=== PATIENT | male | born 1945 | race Caucasian/White ===

== ENCOUNTER 2017-10-11 09:35 | Emergency (ER) | payer MEDICARE, OTHER ==
[2017-10-11] MEDS ORDERED: Aspirin 81 MG Tab.Chew ONE (09:49)
[2017-10-11] MEDS ORDERED: Sodium Chloride 0.9% 10 ML Syringe FLUSH PRN (09:52)
[2017-10-11] MEDS ORDERED: Nitroglycerin 0.4 MG Tab.SL SL PRN (09:52)
[2017-10-11] MEDS ORDERED: Aspirin 81 MG Tab.Chew PO ONE (09:52)
--- NOTE | 2017-10-11 09:52 | EDM.PDOC ---
ED HPI GENERAL MEDICAL PROBLEM - General Chief Complaint: Chest Pain Stated Complaint: [id number] CHEST PAIN Time Seen by Provider: 10/11/17 09:45 Source of Information: Reports: Patient, Old Records, RN, RN Notes Reviewed History Limitations: Reports: No Limitations - History of Present Illness INITIAL COMMENTS - FREE TEXT/NARRATIVE: Arrives from home by POV with c/o substernal chest pain and shortness of breath that began at 0830HRS this morning while walking from the house to the street to check his mailbox. Pt took a Nitroglycerin 0.4mg SL x1 with not much result, so he took a second dose which resulted in partial relief of his chest pain. He felt well enough to get a shower and get ready for the day, but while waiting for the shower to be available the chest pain returned while he was at rest. He has taken all of his routine maint. medications today. He last took Aspirin 81mg last night. Pt reports that yesterday he felt completely well and normal, and felt well this morning until the onset of the chest pain. He denies cough, edema, palpitations, syncope, lightheadedness, headache, abdominal pain, fever, or chills. He admits that he did experience just a "brief wave" of nausea with the first episode of chest pain today, but denies any current nausea. Onset: Sudden Onset Date: 10/11/17 Duration: Intermittent, Recurring, Waxing/Waning Location: Reports: Chest Quality: Reports: Ache, Dull, Pressure Severity: Moderate Improves with: Reports: Medication (partial & brief improvement w/Nitro 0.4mg SL prior to arrival to ER.) Worsens with: Reports: None Associated Symptoms: Reports: No Other Symptoms Treatments APPLICATION LEAD: Reports: Nitroglycerin Left Chest Pain Score (Numeric/FACES): 6 - Related Data Allergies Allergy/AdvReac Type Severity Reaction Status Date / Time cisapride Allergy Cannot Verified 12/18/14 08:58 Remember cisapride monohydrate Allergy Cannot Verified 12/18/14 09:20 [From Propulsid] Remember diclofenac sodium Allergy Cannot Verified 12/18/14 08:58 [From Arthrotec] Remember misoprostol [From Arthrotec] Allergy Cannot Verified 12/18/14 08:58 Remember nadolol Allergy Cannot Verified 12/18/14 08:58 Remember Home Meds: Home Meds Aspirin [Halfprin] 1 tab PO BEDTIME 12/18/14 [History] Losartan [Cozaar] 25 mg PO DAILY 12/18/14 [History] Metoprolol Succinate [Toprol Xl] 1 tab PO DAILY 12/18/14 [History] Nitroglycerin [Nitrostat] 1 tab PO ASDIRECTED PRN 12/18/14 [History] Omeprazole [Prilosec] 1 tab PO DAILY 12/18/14 [History] Ticagrelor [Brilinta] 90 mg PO BID 07/15/16 [History] amLODIPine [Norvasc] 1 tab PO DAILY 10/11/17 [History] atorvaSTATin [Lipitor] 1 tab PO DAILY 10/11/17 [History] Past Medical History Cardiovascular History: Reports: Afib, Angina, Arrhythmia, CAD, High Cholesterol , Hypertension, [place], PTCA Gastrointestinal History: Reports: GERD Genitourinary History: Reports: BPH - Past Surgical History Cardiovascular Surgical History: Reports: Coronary Artery Bypass, Coronary Artery Stent Musculoskeletal Surgical History: Reports: Joint Replacement Social & Family History - Tobacco Use Smoking Status *Q: Never Smoker Years of Tobacco use: 25 Second Hand Smoke Exposure: No - Alcohol Use Days Per Week of Alcohol Use: 7 Number of Drinks Per Day: 3 Total Drinks Per Week: 21 - Recreational Drug Use Recreational Drug Use: No - Living Situation & Occupation Living situation: Reports: , with Spouse Occupation: Retired ED ROS GENERAL - Review of Systems Review Of Systems: ROS reveals no pertinent complaints other than HPI. ED EXAM, GENERAL - Physical Exam Exam: See Below Exam Limited By: No Limitations General Appearance: Alert, WD/WN, No Apparent Distress, Anxious Eye Exam: Bilateral Eye: Normal Inspection Ears: Normal External Exam, Hearing Grossly Normal Nose: Normal Inspection Throat/Mouth: Normal Inspection, Normal Lips, Normal Teeth, Normal Gums, Normal Oropharynx, Normal Voice, No Airway Compromise Head: Atraumatic, Normocephalic Neck: Normal Inspection, Supple, Non-Tender, Full Range of Motion Respiratory/Chest: No Respiratory Distress, Lungs Clear, Normal Breath Sounds, No Accessory Muscle Use, Chest Non-Tender Cardiovascular: Normal Peripheral Pulses, Regular Rate, Rhythm, No Edema, No Gallop, No JVD, No Murmur, No Rub GI/Abdominal: Normal Bowel Sounds, Soft, Non-Tender, No Distention, No Abnormal Bruit (Male) Exam: Deferred Rectal (Males) Exam: Deferred Back Exam: Normal Inspection. No: CVA Tenderness (L), CVA Tenderness (R) Extremities: Normal Inspection, Normal Range of Motion, Non-Tender, Normal Capillary Refill, No Pedal Edema Neurological: Alert, Oriented, CN II-XII Intact, Normal Cognition, Normal Gait, No Motor/Sensory Deficits Psychiatric: Anxious Skin Exam: Warm, Dry, Intact, Normal Color, No Rash EKG INTERPRETATION EKG Date: 10/11/17 Time: 09:39 Rhythm: Other (SR) Rate (Beats/Min): 67 [place]: LAD-Left [place] Deviation P-Wave: Present QRS: Other (borderline IVCD, PVC) ST-T: Normal QT: Normal Comparison: NA - No Prior EKG Course - Vital Signs Last Recorded V/S: Last Vital Signs Temp 36.1 C 10/11/17 09:37 Pulse 73 10/11/17 09:37 Resp 16 10/11/17 09:37 BP 108/52 L 10/11/17 09:56 Pulse Ox 94 L 10/11/17 09:37 - Orders/Labs/Meds Orders: Active Orders 24 hr Category Date Time Status EKG 12 Lead [EKG Documentation Completion] [RC] STAT Care 10/11/17 09:52 Active Peripheral IV Care [RC] . DIRECTED Care 10/11/17 09:53 Active Nitroglycerin [Nitrostat] Med 10/11/17 09:52 Active 0.4 mg SL Q5M PRN Sodium Chloride 0.9% [Saline Flush] Med 10/11/17 09:52 Active 10 ml FLUSH ASDIRECTED PRN Peripheral IV Insertion Adult [OM.PC] Stat Oth 10/11/17 09:52 Ordered Medication Orders Nitroglycerin (Nitrostat) 0.4 mg SL Q5M PRN PRN Reason: Chest Pain Last Admin: 10/11/17 09:56 Dose: 0.4 mg Sodium Chloride (Saline Flush) 10 ml FLUSH ASDIRECTED PRN PRN Reason: Keep Vein Open Last Admin: 10/11/17 09:36 Dose: 10 ml Labs: Laboratory Tests 10/11/17 10/11/17 10/11/17 Range/Units 09:47 09:47 09:47 WBC 6.8 (5.0-10.0) 10^3/uL RBC 4.48 L (4.6-6.2) 10^6/uL Hgb 13.8 L (14.0-18.0) g/dL Hct 40.1 (40.0-54.0) % MCV 89.5 (80-100) fL MCH 30.8 (27.0-34.0) pg MCHC 34.4 (33.0-35.0) g/dL Plt Count 187 (150-450) 10^3/uL Neut % (Auto) 64.1 (42.2-75.2) % Lymph % (Auto) 21.9 (20.5-50.1) % [place] % (Auto) 12.4 H (2-8) % Eos % (Auto) 1.0 (1.0-3.0) % Baso % (Auto) 0.6 (0.0-1.0) % PT 10.3 (9.0-12.0) SEC INR 1.0 (0.9-1.2) APTT 24.4 (22.0-34.0) SEC D-Dimer, Quantitative 362 (0-400) ng/mL Sodium 135 (135-145) mmol/L Potassium 3.7 (3.6-5.0) mmol/L Chloride 104 (101-111) mmol/L Carbon Dioxide 20.0 L (21.0-31.0) mmol/L Anion Gap 14.7 BUN 24 H (7-18) mg/dL Creatinine 1.3 (0.6-1.3) mg/dL Est Cr Clr Drug Dosing TNP Estimated GFR (MDRD) 54 BUN/Creatinine Ratio 18.46 Glucose 120 H (74-105) mg/dL Calcium 9.1 (8.4-10.2) mg/dl Total Bilirubin 0.9 (0.2-1.0) mg/dL AST 31 (10-42) IU/L ALT 27 (10-60) IU/L Alkaline Phosphatase 80 (42-121) IU/L Troponin I < 0.02 (0.00-0.02) ng/ml B-Natriuretic Peptide 72 (0-100) pg/ml Total Protein 6.9 (6.7-8.2) g/dl Albumin 3.9 (3.2-5.5) g/dl Globulin 3.0 Albumin/Globulin Ratio 1.30 Amylase 60 (28-100) U/L Lipase 20 L (22-51) U/L Meds: Medications Generic Name Dose Route Start Last Admin Trade Name Freq PRN Reason Stop Dose Admin Nitroglycerin 0.4 mg 10/11/17 09:52 10/11/17 09:56 Nitrostat SL 0.4 mg Q5M PRN Administration Chest Pain Sodium Chloride 10 ml 10/11/17 09:52 10/11/17 09:36 Saline Flush FLUSH 10 ml ASDIRECTED PRN Administration Keep Vein Open Discontinued Medications Generic Name Dose Route Start Last Admin Trade Name Freq PRN Reason Stop Dose Admin Aspirin 324 mg 10/11/17 09:52 10/11/17 09:50 Aspirin PO 10/11/17 09:53 324 mg ONETIME ONE Administration Aspirin Confirm 10/11/17 09:49 10/11/17 09:50 Aspirin Administered 10/11/17 09:50 324 mg Dose Administration 324 mg .ROUTE .STK-MED ONE Morphine Sulfate 4 mg 10/11/17 10:06 10/11/17 10:10 Morphine IVPUSH 10/11/17 10:07 4 mg ONETIME ONE Administration - Radiology Interpretation Free Text/Narrative:: CXR: no acute process, see Rad. report. - Re-Assessments/Exams Free Text/Narrative Re-Assessment/Exam: 10/11/17 11:30 Pt with known CAD s/p CABG and multiple stents with chest pain at rest, partially relieved with Nitroglycerin and Morphine, but recurrent at rest. Pt refuses to receive care at [facility] in [place] (the nearest facility with cardiology services), and requests transfer only to [facility] where he established with he life skills worker. I explained the requirement to transfer him to the nearest facility, but he still refuses and he acknowledges that ground transfer to [place] may affect the reimbursement of his care and/or transfer. Pt accepts any potential financial implications of being transferred to [facility], and of any potential complications to his medical condition by choosing a longer transfer time of travel. Departure - Departure Time of Disposition: 11:37 Disposition: DC/Tfer to Acute Hospital 02 Reason for Transfer *Q: Primary PCI Indicated Condition: Serious, Undetermined Clinical Impression: Acute coronary syndrome Chest pain Qualifiers: Chest pain type: chest pain due to myocardial ischemia Ischemic chest pain type : unspecified angina pectoris type Qualified Code(s): I20.9 - Angina pectoris, unspecified Forms: ED Department Discharge, Interfacility Transfer EMTGLADIS - My Orders Last 24 Hours: My Active Orders 10/11/17 09:52 EKG 12 Lead [EKG Documentation Completion] [RC] STAT Nitroglycerin [Nitrostat] 0.4 mg SL Q5M PRN Sodium Chloride 0.9% [Saline Flush] 10 ml FLUSH ASDIRECTED PRN Peripheral IV Insertion Adult [OM.PC] Stat 10/11/17 09:53 Peripheral IV Care [RC] . DIRECTED - Assessment/Plan Last 24 Hours: My Active Orders 10/11/17 09:52 EKG 12 Lead [EKG Documentation Completion] [RC] STAT Nitroglycerin [Nitrostat] 0.4 mg SL Q5M PRN Sodium Chloride 0.9% [Saline Flush] 10 ml FLUSH ASDIRECTED PRN Peripheral IV Insertion Adult [OM.PC] Stat 10/11/17 09:53 Peripheral IV Care [RC] . DIRECTED
[2017-10-11] MEDS ORDERED: Morphine 4 MG/ML Syringe IVPUSH ONE (10:06)
[2017-10-11 10:17] LABS: CHLORIDE,CL 104 mmol/L (101-111); SODIUM,NA 135 mmol/L (135-145)
[2017-10-11 11:26] VITALS: BP 143/86
--- NOTE | 2017-10-19 18:37 | EKG ---
10/11/2017 - MINDA VALENTINE - FINDINGS: This 12-lead EKG shows normal sinus rhythm with a ventricular rate of 67. Normal axis and intervals. Occasional PVC. Borderline intraventricular conduction defect with left axis deviation. [facility] /[id number]
== END 2017-10-11 12:16 ==
LOC: DL.ED 09:35
DX: I24.9 Acute ischemic heart disease, unspecified (principal); E78.00 Pure hypercholesterolemia, unspecified; I10 Essential (primary) hypertension; Z88.8 Allergy status to other drugs, medicaments and biological substances; Z79.82 Long term (current) use of aspirin; Z79.899 Other long term (current) drug therapy; Z95.5 Presence of coronary angioplasty implant and graft
CPT/HCPCS: 36415; 71010; 80053; 82150; 83690; 83880; 84484; 85025; 85379; 85610; 85730; 93005; 93010; 96374; 99285; A9270; J2270; J7050

== ENCOUNTER 2019-07-14 10:55 | Emergency (ER) | payer MEDICARE, OTHER ==
--- NOTE | 2019-07-14 11:20 | EDM.PDOC ---
ED HPI GENERAL MEDICAL PROBLEM - General Chief Complaint: Cardiovascular Problem Stated Complaint: DIZZY Time Seen by Provider: 07/14/19 11:10 Source of Information: Reports: Patient, Family, RN, RN Notes Reviewed History Limitations: Reports: No Limitations - History of Present Illness INITIAL COMMENTS - FREE TEXT/NARRATIVE: Pt to ER with with c/o dizziness and blurred vision. States he also had some pain across the upper back and neck at that time. States he had gotten up at a restaurant to pay and the symptoms began. Patient states no recent illness. States about 1 week ago he had diarrhea 3-4 times in a day. States he has extensive heart history, CABG and stents, has had VT in the past. Was seen by his bagger meat and started on new antianginal medication last week as well as a form of Proscar. Pt states he did take a Nitroglycerin when he was having the symptoms. States he does have some chronic kidney disease that he is followed by Dr. Tapia for. Upon arrival to the ER pt states the dizziness and pain are gone. When doing orthostatic BP's, pt hypotensive, dizzy and blurred vision with sitting up and standing. Onset: Today, Sudden Location: Reports: Neck - Related Data Allergies Allergy/AdvReac Type Severity Reaction Status Date / Time cisapride Allergy Cannot Verified 07/14/19 11:02 Remember cisapride monohydrate Allergy Cannot Verified 07/14/19 11:02 [From Propulsid] Remember diclofenac sodium Allergy Cannot Verified 07/14/19 11:02 [From Arthrotec] Remember misoprostol [From Arthrotec] Allergy Cannot Verified 07/14/19 11:02 Remember nadolol Allergy Cannot Verified 07/14/19 11:02 Remember Home Meds: Home Meds Aspirin [Halfprin] 1 tab PO BEDTIME 12/18/14 [History] Losartan [Cozaar] 25 mg PO DAILY 12/18/14 [History] Metoprolol Succinate [Toprol Xl] 1 tab PO DAILY 12/18/14 [History] Nitroglycerin [Nitrostat] 1 tab PO ASDIRECTED PRN 12/18/14 [History] Omeprazole [Prilosec] 1 tab PO DAILY 12/18/14 [History] Ticagrelor [Brilinta] 90 mg PO BID 07/15/16 [History] amLODIPine [Norvasc] 1 tab PO DAILY 10/11/17 [History] atorvaSTATin [Lipitor] 1 tab PO DAILY 10/11/17 [History] Past Medical History HEENT History: Reports: Impaired Vision Other HEENT History: 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 Cardiovascular History: Reports: Afib, Angina, Arrhythmia, CAD, High Cholesterol , Hypertension, [place], PTCA Respiratory History: Reports: None Gastrointestinal History: Reports: GERD Genitourinary History: Reports: BPH Other Genitourinary History: needs special procedures due renal disease and worries about any dyes used Neurological History: Reports: CVA Psychiatric History: Reports: None Endocrine/Metabolic History: Reports: None Hematologic History: Reports: None Immunologic History: Reports: None Oncologic (Cancer) History: Reports: None Dermatologic History: Reports: None - Infectious Disease History Infectious Disease History: Reports: None - Past Surgical History Head Surgeries/Procedures: Reports: None HEENT Surgical History: Reports: None Cardiovascular Surgical History: Reports: Coronary Artery Bypass, Coronary Artery Stent Neurological Surgical History: Reports: None Musculoskeletal Surgical History: Reports: Joint Replacement Social & Family History - Family History Family Medical History: Noncontributory - Tobacco Use Smoking Status *Q: Never Smoker Second Hand Smoke Exposure: No - Caffeine Use Caffeine Use: Reports: Coffee - Alcohol Use Days Per Week of Alcohol Use: 7 Number of Drinks Per Day: 3 Total Drinks Per Week: 21 - Recreational Drug Use Recreational Drug Use: No - Living Situation & Occupation Living situation: Reports: , with Spouse Occupation: Retired ED ROS GENERAL - Review of Systems Review Of Systems: ROS reveals no pertinent complaints other than HPI. ED EXAM, GENERAL - Physical Exam Exam: See Below Exam Limited By: No Limitations General Appearance: Alert, WD/WN Eye Exam: Bilateral Eye: EOMI, Normal Inspection Ears: Normal External Exam, Hearing Grossly Normal Nose: Normal Inspection Throat/Mouth: Normal Inspection, Normal Lips, Normal Teeth, Normal Gums, Normal Oropharynx, Normal Voice, No Airway Compromise Head: Atraumatic, Normocephalic Neck: Normal Inspection, Supple, Non-Tender, Full Range of Motion Respiratory/Chest: No Respiratory Distress, Lungs Clear, Normal Breath Sounds, No Accessory Muscle Use, Chest Non-Tender Cardiovascular: Normal Peripheral Pulses, Regular Rate, Rhythm, No Edema, No Gallop, No JVD, No Murmur, No Rub, Bradycardia Peripheral Pulses: 2+: Radial (L), Radial (R) GI/Abdominal: Normal Bowel Sounds, Soft, Non-Tender (Male) Exam: Deferred Rectal (Males) Exam: Deferred Back Exam: Normal Inspection, Full Range of Motion, NT Extremities: Normal Inspection, Normal Range of Motion, Non-Tender, Normal Capillary Refill, No Pedal Edema Neurological: Alert, Oriented, CN II-XII Intact, Normal Cognition, Normal Gait, Normal Reflexes, No Motor/Sensory Deficits Psychiatric: Normal Affect, Normal Mood Skin Exam: Warm, Dry, Intact, Normal Color, No Rash Lymphatic: No Adenopathy Course - Vital Signs Last Recorded V/S: Last Vital Signs Temp 98 F 07/14/19 12:45 Pulse 53 L 07/14/19 16:11 Resp 18 07/14/19 16:11 BP 134/53 L 07/14/19 16:11 Pulse Ox 93 L 07/14/19 16:11 Orthostatic Blood Pressure [ 71/37 Standing] Orthostatic Blood Pressure [ 89/42 Sitting] Orthostatic Blood Pressure [ 105/43 Supine] - Orders/Labs/Meds Orders: Active Orders 24 hr Category Date Time Status Blood Glucose Check, Bedside [RC] ONETIME Care 07/14/19 11:05 Active EKG Documentation Completion [RC] STAT Care 07/14/19 11:04 Active EKG Documentation Completion [RC] STAT Care 07/14/19 15:15 Active Peripheral IV Care [RC] . DIRECTED Care 07/14/19 11:05 Active Sodium Chloride 0.9% [Saline Flush] Med 07/14/19 11:04 Active 10 ml FLUSH ASDIRECTED PRN Peripheral IV Insertion Adult [OM.PC] Stat Oth 07/14/19 11:04 Ordered Medication Orders Sodium Chloride (Saline Flush) 10 ml FLUSH ASDIRECTED PRN PRN Reason: Keep Vein Open Last Admin: 07/14/19 11:21 Dose: 10 ml Labs: Laboratory Tests 07/14/19 07/14/19 07/14/19 Range/Units 11:16 11:16 11:16 WBC 9.4 (5.0-10.0) 10^3/uL RBC 4.41 L (4.6-6.2) 10^6/uL Hgb 13.8 L (14.0-18.0) g/dL Hct 39.7 L (40.0-54.0) % MCV 90.0 (80-100) fL MCH 31.3 (27.0-34.0) pg MCHC 34.8 (33.0-35.0) g/dL Plt Count 220 (150-450) 10^3/uL Neut % (Auto) 78.0 H (42.2-75.2) % Lymph % (Auto) 12.0 L (20.5-50.1) % [place] % (Auto) 8.4 H (2-8) % Eos % (Auto) 1.1 (1.0-3.0) % Baso % (Auto) 0.5 (0.0-1.0) % PT 10.4 (9.0-12.0) SEC INR 1.0 (0.9-1.2) Sodium 135 (135-145) mmol/L Potassium 4.2 (3.6-5.0) mmol/L Chloride 105 (101-111) mmol/L Carbon Dioxide 20.0 L (21.0-31.0) mmol/L Anion Gap 14.2 BUN 33 H (7-18) mg/dL Creatinine 1.7 H (0.6-1.3) mg/dL Est Cr Clr Drug Dosing TNP Estimated GFR (MDRD) 39 BUN/Creatinine Ratio 19.41 Glucose 121 H (74-105) mg/dL POC Glucose (83-110) mg/dl Calcium 8.9 (8.4-10.2) mg/dl Total Bilirubin 1.1 H (0.2-1.0) mg/dL AST 27 (10-42) IU/L ALT 25 (10-60) IU/L Alkaline Phosphatase 85 (42-121) IU/L Troponin I < 0.02 (0.00-0.02) ng/ml B-Natriuretic Peptide (0-100) pg/ml Total Protein 6.6 L (6.7-8.2) g/dl Albumin 3.6 (3.2-5.5) g/dl Globulin 3.0 Albumin/Globulin Ratio 1.20 Urine Color (YELLOW) Urine Appearance (CLEAR) Urine pH (5.0-9.0) Ur Specific [place] (1.005-1.030) Urine Protein (NEGATIVE) Urine Glucose (UA) (NEGATIVE) Urine Ketones (NEGATIVE) Urine Occult Blood (NEGATIVE) Urine Nitrite (NEGATIVE) Urine Bilirubin (NEGATIVE) Urine Urobilinogen (0.2-1.0) mg/dL Ur Leukocyte Esterase (NEGATIVE) Ethyl Alcohol < 5 mg/dL 07/14/19 07/14/19 07/14/19 Range/Units 11:16 11:19 13:25 WBC (5.0-10.0) 10^3/uL RBC (4.6-6.2) 10^6/uL Hgb (14.0-18.0) g/dL Hct (40.0-54.0) % MCV (80-100) fL MCH (27.0-34.0) pg MCHC (33.0-35.0) g/dL Plt Count (150-450) 10^3/uL Neut % (Auto) (42.2-75.2) % Lymph % (Auto) (20.5-50.1) % [place] % (Auto) (2-8) % Eos % (Auto) (1.0-3.0) % Baso % (Auto) (0.0-1.0) % PT (9.0-12.0) SEC INR (0.9-1.2) Sodium (135-145) mmol/L Potassium (3.6-5.0) mmol/L Chloride (101-111) mmol/L Carbon Dioxide (21.0-31.0) mmol/L Anion Gap BUN (7-18) mg/dL Creatinine (0.6-1.3) mg/dL Est Cr Clr Drug Dosing Estimated GFR (MDRD) BUN/Creatinine Ratio Glucose (74-105) mg/dL POC Glucose 128 H (83-110) mg/dl Calcium (8.4-10.2) mg/dl Total Bilirubin (0.2-1.0) mg/dL AST (10-42) IU/L ALT (10-60) IU/L Alkaline Phosphatase (42-121) IU/L Troponin I (0.00-0.02) ng/ml B-Natriuretic Peptide 70 (0-100) pg/ml Total Protein (6.7-8.2) g/dl Albumin (3.2-5.5) g/dl Globulin Albumin/Globulin Ratio Urine Color Dark yellow (YELLOW) Urine Appearance Clear (CLEAR) Urine pH 6.0 (5.0-9.0) Ur Specific [place] 1.020 (1.005-1.030) Urine Protein Negative (NEGATIVE) Urine Glucose (UA) Negative (NEGATIVE) Urine Ketones Negative (NEGATIVE) Urine Occult Blood Negative (NEGATIVE) Urine Nitrite Negative (NEGATIVE) Urine Bilirubin Negative (NEGATIVE) Urine Urobilinogen 1.0 (0.2-1.0) mg/dL Ur Leukocyte Esterase Negative (NEGATIVE) Ethyl Alcohol mg/dL 07/14/19 07/14/19 Range/Units 15:15 15:15 WBC (5.0-10.0) 10^3/uL RBC (4.6-6.2) 10^6/uL Hgb (14.0-18.0) g/dL Hct (40.0-54.0) % MCV (80-100) fL MCH (27.0-34.0) pg MCHC (33.0-35.0) g/dL Plt Count (150-450) 10^3/uL Neut % (Auto) (42.2-75.2) % Lymph % (Auto) (20.5-50.1) % [place] % (Auto) (2-8) % Eos % (Auto) (1.0-3.0) % Baso % (Auto) (0.0-1.0) % PT (9.0-12.0) SEC INR (0.9-1.2) Sodium 134 L (135-145) mmol/L Potassium 4.8 (3.6-5.0) mmol/L Chloride 106 (101-111) mmol/L Carbon Dioxide 21.0 (21.0-31.0) mmol/L Anion Gap 11.8 BUN 33 H (7-18) mg/dL Creatinine 1.8 H (0.6-1.3) mg/dL Est Cr Clr Drug Dosing TNP Estimated GFR (MDRD) 37 BUN/Creatinine Ratio Glucose 121 H (74-105) mg/dL POC Glucose (83-110) mg/dl Calcium 8.6 (8.4-10.2) mg/dl Total Bilirubin (0.2-1.0) mg/dL AST (10-42) IU/L ALT (10-60) IU/L Alkaline Phosphatase (42-121) IU/L Troponin I < 0.02 (0.00-0.02) ng/ml B-Natriuretic Peptide (0-100) pg/ml Total Protein (6.7-8.2) g/dl Albumin (3.2-5.5) g/dl Globulin Albumin/Globulin Ratio Urine Color (YELLOW) Urine Appearance (CLEAR) Urine pH (5.0-9.0) Ur Specific [place] (1.005-1.030) Urine Protein (NEGATIVE) Urine Glucose (UA) (NEGATIVE) Urine Ketones (NEGATIVE) Urine Occult Blood (NEGATIVE) Urine Nitrite (NEGATIVE) Urine Bilirubin (NEGATIVE) Urine Urobilinogen (0.2-1.0) mg/dL Ur Leukocyte Esterase (NEGATIVE) Ethyl Alcohol mg/dL Meds: Medications Generic Name Dose Route Start Last Admin Trade Name Freq PRN Reason Stop Dose Admin Sodium Chloride 10 ml 07/14/19 11:04 07/14/19 11:21 Saline Flush FLUSH 10 ml ASDIRECTED PRN Administration Keep Vein Open Discontinued Medications Generic Name Dose Route Start Last Admin Trade Name Freq PRN Reason Stop Dose Admin Sodium Chloride 1,000 mls @ 999 mls/hr 07/14/19 11:44 07/14/19 13:01 Normal Saline IV 07/14/19 12:44 Infused .BOLUS ONE Infusion - Radiology Interpretation Free Text/Narrative:: Chest xray: No acute findings See rad report Departure - Departure Time of Disposition: 16:18 Disposition: Home, Self-Care 01 Condition: Fair Clinical Impression: Orthostatic hypotension, Angina at rest Instructions: Angina Pectoris, [id number], Orthostatic Hypotension Referrals: Ivonne Charles PA [Primary Care Provider] - Forms: ED Department Discharge Additional Instructions: Follow up with your primary care provider regarding medications Be very slow when getting up and moving Return to the ER with any further problems No driving until evaluated by your primary care provider or bagger meat - My Orders Last 24 Hours: My Active Orders 07/14/19 11:04 EKG Documentation Completion [RC] STAT Sodium Chloride 0.9% [Saline Flush] 10 ml FLUSH ASDIRECTED PRN Peripheral IV Insertion Adult [OM.PC] Stat 07/14/19 11:05 Blood Glucose Check, Bedside [RC] ONETIME Peripheral IV Care [RC] . DIRECTED 07/14/19 15:15 EKG Documentation Completion [RC] STAT - Assessment/Plan Last 24 Hours: My Active Orders 07/14/19 11:04 EKG Documentation Completion [RC] STAT Sodium Chloride 0.9% [Saline Flush] 10 ml FLUSH ASDIRECTED PRN Peripheral IV Insertion Adult [OM.PC] Stat 07/14/19 11:05 Blood Glucose Check, Bedside [RC] ONETIME Peripheral IV Care [RC] . DIRECTED 07/14/19 15:15 EKG Documentation Completion [RC] STAT
[2019-07-14] MEDS: Sodium Chloride 0.9% 10 ML Syringe FLUSH PRN (11:21)
[2019-07-14 11:45] LABS: ANION GAP 14.2; CHLORIDE,CL 105 mmol/L (101-111); SODIUM,NA 135 mmol/L (135-145)
[2019-07-14] MEDS: Sodium Chloride 0.9% 1,000 ML IV ONE (11:49)
--- NOTE | 2019-07-14 11:59 | CR ---
EXAMINATION: Chest 1V Frontal SEX: Male AGE: 73 years CLINICAL HISTORY: 73-year-old male with unexplained chest pain. Emergency department. INTERPRETATION: (Single upright AP portable chest) sternotomy wires and external groundwater monitoring technician leads. No acute new cardiopulmonary abnormality identified in the interval since 11 October 2017 comparison exam. 1. Normal cardiac silhouette without pulmonary venous congestion, cephalization of vascular flow, alveolar edema or dependent pleural effusion. 2. No new lung mass, hilar lymphadenopathy or focal lobar pneumonia. 3. No atelectasis/collapse. 4. No pneumothorax or pneumomediastinum. No free subdiaphragmatic air.
[2019-07-14 13:58] VITALS: PULSE 53
[2019-07-14 16:12] VITALS: BP 134/53
[2019-07-14 16:15] LABS: ANION GAP 11.8; CHLORIDE,CL 106 mmol/L (101-111); SODIUM,NA 134 mmol/L (135-145)
== END 2019-07-14 16:50 | disposition home or self-care (01) ==
LOC: DL.ED 10:55
DX: I20.9 Angina pectoris, unspecified (principal); I95.1 Orthostatic hypotension; I48.91 Unspecified atrial fibrillation; K21.9 Gastro-esophageal reflux disease without esophagitis; I10 Essential (primary) hypertension; I25.2 Old myocardial infarction; Z88.8 Allergy status to other drugs, medicaments and biological substances; Z79.82 Long term (current) use of aspirin; Z79.899 Other long term (current) drug therapy; Z86.73 Personal history of transient ischemic attack (TIA), and cerebral infarction without residual deficits; Z95.1 Presence of aortocoronary bypass graft; Z95.5 Presence of coronary angioplasty implant and graft
CPT/HCPCS: 36415; 71045; 80048; 80053; 81003; 82962; 83880; 84484; 85025; 85610; 93005; 96360; 96361; 99285; G0480; J7030

== ENCOUNTER 2019-12-27 19:42 | Emergency (ER) | payer MEDICARE, OTHER ==
[2019-12-27] MEDS ORDERED: Aspirin 81 MG Tab.Chew PO ONE (20:30)
--- NOTE | 2019-12-27 20:35 | EDM.PDOC ---
ED HPI GENERAL MEDICAL PROBLEM - General Chief Complaint: Chest Pain Stated Complaint: CHEST PAIN Time Seen by Provider: 12/27/19 20:25 Source of Information: Reports: Patient History Limitations: Reports: No Limitations - History of Present Illness INITIAL COMMENTS - FREE TEXT/NARRATIVE: This 74 yo male patient reports to the ED with chest pain. The patient reports he had chest pain last night (similar to tonight). The patient reports he was feeling well throughout today, but started to have a burning pain prior to coming to the ED. The patient reports he took nitro last night, but has not taken anything tonight. The patient reports he has a history of a cardiac bypass 20 years ago. The patient reports his symptoms have been associated with eating. The patient is on Prilosec for acid reflux (reported by his ). Onset: Today Duration: Hour(s):, Constant Location: Reports: Chest Quality: Reports: Burning Severity: Moderate Improves with: Reports: None Worsens with: Reports: None Context: Reports: Other Associated Symptoms: Reports: Chest Pain Mid-Sternal Epigastric Pain Score (Numeric/FACES): 5 - Related Data Allergies Allergy/AdvReac Type Severity Reaction Status Date / Time cisapride Allergy Cannot Verified 12/27/19 20:04 Remember cisapride monohydrate Allergy Cannot Verified 12/27/19 20:04 [From Propulsid] Remember diclofenac sodium Allergy Cannot Verified 12/27/19 20:04 [From Arthrotec] Remember misoprostol [From Arthrotec] Allergy Cannot Verified 12/27/19 20:04 Remember nadolol Allergy Cannot Verified 12/27/19 20:04 Remember Home Meds: Home Meds Aspirin [Halfprin] 1 tab PO BEDTIME 12/18/14 [History] Losartan [Cozaar] 25 mg PO DAILY 12/18/14 [History] Metoprolol Succinate [Toprol Xl] 1 tab PO DAILY 12/18/14 [History] Nitroglycerin [Nitrostat] 1 tab PO ASDIRECTED PRN 12/18/14 [History] Omeprazole [Prilosec] 1 tab PO DAILY 12/18/14 [History] Ticagrelor [Brilinta] 90 mg PO BID 07/15/16 [History] amLODIPine [Norvasc] 1 tab PO DAILY 10/11/17 [History] atorvaSTATin [Lipitor] 1 tab PO DAILY 10/11/17 [History] Ranolazine [Ranexa] 500 mg PO BID 12/27/19 [History] Past Medical History HEENT History: Reports: Impaired Vision Other HEENT History: 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 Cardiovascular History: Reports: Afib, Angina, Arrhythmia, CAD, High Cholesterol , Hypertension, DC, PTCA Respiratory History: Reports: None Gastrointestinal History: Reports: GERD Genitourinary History: Reports: BPH Other Genitourinary History: needs special procedures due renal disease and worries about any dyes used Neurological History: Reports: CVA Psychiatric History: Reports: None Endocrine/Metabolic History: Reports: None Hematologic History: Reports: None Immunologic History: Reports: None Oncologic (Cancer) History: Reports: None Dermatologic History: Reports: None - Infectious Disease History Infectious Disease History: Reports: None - Past Surgical History Head Surgeries/Procedures: Reports: None HEENT Surgical History: Reports: None Cardiovascular Surgical History: Reports: Coronary Artery Bypass, Coronary Artery Stent Neurological Surgical History: Reports: None Musculoskeletal Surgical History: Reports: Joint Replacement Social & Family History - Family History Family Medical History: Noncontributory - Caffeine Use Caffeine Use: Reports: Coffee - Living Situation & Occupation Living situation: Reports: , with Spouse Occupation: Retired ED ROS GENERAL - Review of Systems Review Of Systems: Comprehensive ROS is negative, except as noted in HPI. ED EXAM, GENERAL - Physical Exam Exam: See Below Exam Limited By: No Limitations General Appearance: Alert, WD/WN, Moderate Distress Eye Exam: Bilateral Eye: EOMI, Normal Inspection, PERRL Ears: Normal External Exam, Normal Canal, Hearing Grossly Normal, Normal TMs Nose: Normal Inspection, Normal Mucosa, No Blood Throat/Mouth: Normal Inspection, Normal Lips, Normal Teeth, Normal Gums, Normal Oropharynx, Normal Voice, No Airway Compromise Head: Atraumatic, Normocephalic Neck: Normal Inspection, Supple, Non-Tender, Full Range of Motion Respiratory/Chest: No Respiratory Distress, Lungs Clear, Normal Breath Sounds, No Accessory Muscle Use, Chest Non-Tender Cardiovascular: Normal Peripheral Pulses, Regular Rate, Rhythm, No Edema, No Gallop, No Murmur, No Rub GI/Abdominal: Normal Bowel Sounds, Soft, Non-Tender, No Organomegaly, No Distention, No Abnormal Bruit, No Mass (Male) Exam: Deferred Rectal (Males) Exam: Deferred Back Exam: Normal Inspection, Full Range of Motion, NT Extremities: Normal Inspection, Normal Range of Motion, Non-Tender, Normal Capillary Refill, No Pedal Edema Neurological: Alert, Oriented, CN II-XII Intact, Normal Cognition, Normal Gait, Normal Reflexes, No Motor/Sensory Deficits Psychiatric: Normal Affect, Normal Mood Skin Exam: Warm, Dry, Intact, Normal Color, No Rash Lymphatic: No Adenopathy Course - Vital Signs Last Recorded V/S: Last Vital Signs Temp 36.7 C 12/27/19 20:32 Pulse 62 12/27/19 20:32 Resp 17 12/27/19 20:32 BP 153/55 H 12/27/19 20:32 Pulse Ox 96 12/27/19 20:32 - Orders/Labs/Meds Orders: Active Orders 24 hr Category Date Time Status EKG Documentation Completion [RC] URGENT Care 12/27/19 19:45 Active Labs: Laboratory Tests 12/27/19 12/27/19 12/27/19 Range/Units 20:00 20:00 20:00 WBC 8.1 (5.0-10.0) 10^3/uL RBC 4.24 L (4.6-6.2) 10^6/uL Hgb 13.5 L (14.0-18.0) g/dL Hct 38.6 L (40.0-54.0) % MCV 91.0 (80-100) fL MCH 31.8 (27.0-34.0) pg MCHC 35.0 (33.0-35.0) g/dL Plt Count 193 (150-450) 10^3/uL Neut % (Auto) 72.8 (42.2-75.2) % Lymph % (Auto) 17.1 L (20.5-50.1) % [place] % (Auto) 8.3 H (2-8) % Eos % (Auto) 1.2 (1.0-3.0) % Baso % (Auto) 0.6 (0.0-1.0) % PT 9.8 (9.0-12.0) SEC INR 1.0 (0.9-1.2) Sodium 138 (136-145) mmol/L Potassium 3.6 (3.5-5.1) mmol/L Chloride 103 (101-111) mmol/L Carbon Dioxide 25 (21-32) mmol/L Anion Gap 13.6 H (7-13) mEq/L BUN 27 H (7-18) mg/dL Creatinine 1.57 H (0.70-1.30) mg/dL Est Cr Clr Drug Dosing 41.33 mL/min Estimated GFR (MDRD) 43 BUN/Creatinine Ratio 17.2 (No establ ref range) Glucose 129 H (74-99) mg/dL Calcium 8.4 L (8.5-10.1) mg/dL Total Bilirubin 0.5 (0.2-1.0) mg/dL AST 21 (15-37) U/L ALT 34 (16-63) U/L Alkaline Phosphatase 95 (46-116) U/L Troponin I 0.026 (0.000-0.056) ng/mL Total Protein 6.8 (6.4-8.2) g/dL Albumin 3.5 (3.4-5.0) g/dL Globulin 3.3 Albumin/Globulin Ratio 1.1 Meds: Medications Discontinued Medications Generic Name Dose Route Start Last Admin Trade Name Freq PRN Reason Stop Dose Admin Al Hydroxide/Mg Hydroxide 30 ml 12/27/19 21:01 12/27/19 21:05 Gi Cocktail PO 12/27/19 21:02 30 ml ONETIME ONE Administration Aspirin 324 mg 12/27/19 20:30 12/27/19 20:43 Aspirin PO 12/27/19 20:31 324 mg ONETIME ONE Administration Departure - Departure Time of Disposition: 21:37 Disposition: Home, Self-Care 01 Condition: Fair Clinical Impression: GERD (gastroesophageal reflux disease) Qualifiers: Esophagitis presence: with esophagitis Qualified Code(s): K21.0 - Gastro- esophageal reflux disease with esophagitis Instructions: Gastroesophageal Reflux Disease, Adult, [id number], Food Choices for Gastroesophageal Reflux Disease, Adult, [id number] Forms: ED Department Discharge Care Plan Goals: The patient was advised of the examination, lab, EKG and x-ray results during the visit. The patient was given an oral dose of aspirin and a GI Cocktail while in the ED. The patient reports improvement in his symptoms after the GI Cocktail. The patient was encouraged to continue with his current medications. If the patient has any additional symptoms or concerns, the patient should either return to the emergency department or visit his primary care facility. Sepsis Event Note - Focused Exam Vital Signs: Vital Signs Temp Pulse Resp BP Pulse Ox 12/27/19 20:32 36.7 C 62 17 153/55 H 96 Date Exam was Performed: 12/27/19 Time Exam was Performed: 21:37 - My Orders Last 24 Hours: My Active Orders 12/27/19 19:45 EKG Documentation Completion [RC] URGENT - Assessment/Plan Last 24 Hours: My Active Orders 12/27/19 19:45 EKG Documentation Completion [RC] URGENT
[2019-12-27 20:38] VITALS: BP 153/55; PULSE 62
[2019-12-27 20:42] LABS: ANION GAP 13.6 mEq/L (7-13)
[2019-12-27] MEDS ORDERED: GI Cocktail Oral Solution 30 ML PO ONE (21:01)
== END 2019-12-27 21:50 | disposition home or self-care (01) ==
LOC: DL.ED 19:42
DX: K21.0 Gastro-esophageal reflux disease with esophagitis (principal); I10 Essential (primary) hypertension; I48.91 Unspecified atrial fibrillation; I25.10 Atherosclerotic heart disease of native coronary artery without angina pectoris; E78.00 Pure hypercholesterolemia, unspecified; I25.2 Old myocardial infarction; Z86.72 Personal history of thrombophlebitis; Z88.8 Allergy status to other drugs, medicaments and biological substances; Z79.82 Long term (current) use of aspirin; Z79.899 Other long term (current) drug therapy
CPT/HCPCS: 36415; 71045; 80053; 84484; 85025; 85610; 93005; 99285-25; A9270-GY

== ENCOUNTER → 2022-01-01 | Day surgery (SDC) | payer MEDICARE, OTHER ==
[~2022-01-01] MED LIST: Acetaminophen 325 MG Tab PO PRN; Acetaminophen/Codeine 300-30 MG Tab PO PRN; Apraclonidine 0.5% Ophth Soln 5 ML Bot EYERT ONE; Balanced Salt Solution Ophth Irrig 500 ML Bottle IOCULAR ONE; Cataract Ophth Solution EYERT ONE; Chondroitin Sulfate/Hyaluronate Sodium Ophth Inj 0.75 ML Syringe EYERT ONE; Dexamethasone 4 MG/ML SDV IV ONE; Dexamethasone/Neomycin/Polymyxin B Ophth Oint 3.5 GM Tube EYERT ONE; Diclofenac Sodium 0.1% Ophth Soln 5 ML Bottle EYERT ONE; Lidocaine 1% 30 ML SDV ONE; Midazolam 1 MG/ML 2 ML SDV IV ONE; Moxifloxacin 0.5% Ophth Soln 3 ML Bottle EYERT ONE; Ondansetron 4 MG/2 ML SDV IVPUSH PRN; Phenylephrine 10% Ophth Soln 5 ML Bot EYERT ONE; Phenylephrine 10% Ophth Soln 5 ML Bot EYERT PRN; Povidone-Iodine 5% Sterile Ophth Soln 30 ML Bottle EYERT ONE; Proparacaine 0.5% Ophth Soln 15 ML Bottle EYERT ONE; Proparacaine 0.5% Ophth Soln 15 ML Bottle ONE; Sodium Chloride 0.9% 10 ML Syringe FLUSH PRN; Sodium Chloride 0.9% 10 ML Syringe IV ONE; Tetracaine HCl/PF 0.5% 4 ML Bottle EYERT ONE; Timolol Maleate 0.5% Ophth Soln 5 ML Bottle EYERT ONE; Tobramycin 0.3% Ophth Drops 5 ML Bottle EYELF ONE; Tobramycin 0.3% Ophth Drops 5 ML Bottle EYERT ONE; Tropicamide 1% Ophth Soln 15 ML Bottle EYERT ONE; Vancomycin 500 MG SDV EYERT ONE
[2022-01-01 12:08] VITALS: BP 161/120; PULSE 54
== END | disposition home or self-care (01) ==
LOC: DL.SDS 10:09
PROVIDERS: ATTEND Ophthalmology
DX: H26.9 Unspecified cataract (principal); N40.0 Benign prostatic hyperplasia without lower urinary tract symptoms; I25.10 Atherosclerotic heart disease of native coronary artery without angina pectoris; E78.5 Hyperlipidemia, unspecified; I73.9 Peripheral vascular disease, unspecified; G47.39 Other sleep apnea; I12.9 Hypertensive chronic kidney disease with stage 1 through stage 4 chronic kidney disease, or unspecified chronic kidney disease; N18.32 Chronic kidney disease, stage 3b; Z98.890 Other specified postprocedural states; Z87.891 Personal history of nicotine dependence; Z79.899 Other long term (current) drug therapy; Z88.8 Allergy status to other drugs, medicaments and biological substances
CPT/HCPCS: 00142; A9270-GY; J1100; J2250; J3370; J3490; V2632

== ENCOUNTER 2022-01-15 09:45 | Day surgery (SDC) | payer MEDICARE, OTHER ==
[~2022-01-15 09:45] MED LIST changes: -Apraclonidine 0.5% Ophth Soln 5 ML Bot EYERT ONE; -Balanced Salt Solution Ophth Irrig 500 ML Bottle IOCULAR ONE; +Cataract Ophth Solution EYELF ONE; -Cataract Ophth Solution EYERT ONE; -Chondroitin Sulfate/Hyaluronate Sodium Ophth Inj 0.75 ML Syringe EYERT ONE; -Dexamethasone 4 MG/ML SDV IV ONE; -Dexamethasone/Neomycin/Polymyxin B Ophth Oint 3.5 GM Tube EYERT ONE; -Diclofenac Sodium 0.1% Ophth Soln 5 ML Bottle EYERT ONE; -Lidocaine 1% 30 ML SDV ONE; -Midazolam 1 MG/ML 2 ML SDV IV ONE; +Moxifloxacin 0.5% Ophth Soln 3 ML Bottle EYELF ONE; -Moxifloxacin 0.5% Ophth Soln 3 ML Bottle EYERT ONE; +Phenylephrine 10% Ophth Soln 5 ML Bot EYELF ONE; -Phenylephrine 10% Ophth Soln 5 ML Bot EYERT ONE; -Phenylephrine 10% Ophth Soln 5 ML Bot EYERT PRN; +Povidone-Iodine 5% Sterile Ophth Soln 30 ML Bottle EYELF ONE; -Povidone-Iodine 5% Sterile Ophth Soln 30 ML Bottle EYERT ONE; +Proparacaine 0.5% Ophth Soln 15 ML Bottle EYELF ONE; -Proparacaine 0.5% Ophth Soln 15 ML Bottle EYERT ONE; -Sodium Chloride 0.9% 10 ML Syringe IV ONE; -Tetracaine HCl/PF 0.5% 4 ML Bottle EYERT ONE; +Timolol Maleate 0.5% Ophth Soln 5 ML Bottle EYELF ONE; -Timolol Maleate 0.5% Ophth Soln 5 ML Bottle EYERT ONE; -Tobramycin 0.3% Ophth Drops 5 ML Bottle EYELF ONE; -Tobramycin 0.3% Ophth Drops 5 ML Bottle EYERT ONE; +Tropicamide 1% Ophth Soln 15 ML Bottle EYELF ONE; -Tropicamide 1% Ophth Soln 15 ML Bottle EYERT ONE; -Vancomycin 500 MG SDV EYERT ONE
[2022-01-15] MEDS ORDERED: Glycopyrrolate 0.2 MG/ML 2 ML SDV IV ONE (09:46)
[2022-01-15] MEDS ORDERED: Dexamethasone 4 MG/ML SDV IV ONE (09:46)
[2022-01-15] MEDS ORDERED: Midazolam 1 MG/ML 2 ML SDV IV ONE (09:46)
[2022-01-15] MEDS ORDERED: Povidone-Iodine 5% Sterile Ophth Soln 30 ML Bottle EYELF ONE (10:53)
[2022-01-15] MEDS ORDERED: Apraclonidine 0.5% Ophth Soln 5 ML Bot EYELF ONE (10:53)
[2022-01-15] MEDS ORDERED: Tetracaine HCl/PF 0.5% 4 ML Bottle EYELF ONE (10:53)
[2022-01-15] MEDS ORDERED: Lidocaine 1% 30 ML SDV ONE (10:53)
[2022-01-15] MEDS ORDERED: Vancomycin 500 MG SDV EYELF ONE (10:54)
[2022-01-15] MEDS ORDERED: Balanced Salt Solution Ophth Irrig 500 ML Bottle IOCULAR ONE (10:54)
[2022-01-15] MEDS ORDERED: Chondroitin Sulfate/Hyaluronate Sodium Ophth Inj 0.75 ML Syringe EYELF ONE (10:54)
[2022-01-15] MEDS ORDERED: Diclofenac Sodium 0.1% Ophth Soln 5 ML Bottle EYELF ONE (10:54)
[2022-01-15] MEDS ORDERED: Dexamethasone/Neomycin/Polymyxin B Ophth Oint 3.5 GM Tube EYELF ONE (10:54)
[2022-01-15 12:57] VITALS: BP 158/55; PULSE 55
== END 2022-01-15 12:00 | disposition home or self-care (01) ==
LOC: DL.SDS 09:45
PROVIDERS: ATTEND Ophthalmology
DX: H25.812 Combined forms of age-related cataract, left eye (principal); I10 Essential (primary) hypertension; I25.10 Atherosclerotic heart disease of native coronary artery without angina pectoris; E78.5 Hyperlipidemia, unspecified; G47.30 Sleep apnea, unspecified; Z79.899 Other long term (current) drug therapy; Z86.73 Personal history of transient ischemic attack (TIA), and cerebral infarction without residual deficits
CPT/HCPCS: 66984; A9270; J1100; J2250; J3370; J3490; V2632; 00142

== ENCOUNTER 2023-04-13 09:30 | Emergency (ER) | payer MEDICARE, OTHER ==
[2023-04-13 10:06] LABS: BASOPHILS PERCENT AUTO 0.5 % (0.0-1.0); EOSINOPHILS PERCENT AUTO 1.9 % (1.0-3.0); HEMATOCRIT 37.2 % (40.0-54.0); HEMOGLOBIN 13.1 g/dL (14.0-18.0); LYMPHOCYTES PERCENT AUTO 12.7 % (20.5-50.1); MEAN CORPUSCULAR HEMOGLOBIN 31.6 pg (27.0-34.0); MEAN CORPUSCULAR HGB CONC 35.2 g/dL (33.0-35.0); MEAN CORPUSCULAR VOLUME 89.6 fL (80-100); MONOCYTES PERCENT AUTO 10.1 % (2-8); NEUTROPHILS PERCENT AUTO 74.8 % (42.2-75.2); PLATELET COUNT,PLT 264 10^3/uL (150-450); RED BLOOD CELL COUNT 4.15 10^6/uL (4.6-6.2); WHITE BLOOD CELL COUNT,WBC 9.4 10^3/uL (5.0-10.0)
[2023-04-13] MEDS ORDERED: Sodium Chloride 0.9% 1,000 ML IV ONE (10:22)
[2023-04-13 10:26] LABS: A/G RATIO 0.9; ALBUMIN 3.6 g/dL (3.4-5.0); ANION GAP 10.4 mEq/L (7-13); BILIRUBIN TOTAL 1.5 mg/dL (0.2-1.0); BUN/CREATININE RATIO 18.2 (No establ ref range); C-REACTIVE PROTEIN 0.5 mg/dL (0.0-0.9); CALCIUM 9.3 mg/dL (8.5-10.1); CREATININE 2.09 mg/dL (0.70-1.30); EST CRCL DRUG DOSING (CG) 29.59 mL/min; POTASSIUM,K 4.4 mmol/L (3.5-5.1); PROTEIN TOTAL,TP 7.4 g/dL (6.4-8.2)
[2023-04-13 11:43] LABS: APPEARANCE,URINE CLEAR (CLEAR); BILIRUBIN,URINE NEGATIVE (NEGATIVE); COLOR,URINE DARK YELLOW (YELLOW); GLUCOSE,URINE NEGATIVE (NEGATIVE); KETONES,URINE NEGATIVE (NEGATIVE); LEUKOCYTE ESTERASE,URINE NEGATIVE (NEGATIVE); NITRITE,URINE NEGATIVE (NEGATIVE); OCCULT BLOOD,URINE NEGATIVE (NEGATIVE); PH,URINE 5.5 (5.0-9.0); PROTEIN,URINE NEGATIVE (NEGATIVE)
[2023-04-13 11:51] LABS: BACTERIA,URINE NOT SEEN /HPF (0-FEW/HPF); EPITHELIAL CELLS,URINE RARE /HPF (NOT SEEN); MUCUS,URINE NOT SEEN /LPF (NOT SEEN); RBC,URINE NOT SEEN /HPF (0-5); WBC,URINE 0-5 /HPF (0-5/HPF)
[2023-04-13 12:24] VITALS: BP 140/52; PULSE 50
== END 2023-04-13 12:17 | disposition home or self-care (01) ==
LOC: DL.ED 09:30
DX: I95.1 Orthostatic hypotension (principal); E86.0 Dehydration; R00.1 Bradycardia, unspecified; I12.9 Hypertensive chronic kidney disease with stage 1 through stage 4 chronic kidney disease, or unspecified chronic kidney disease; N18.32 Chronic kidney disease, stage 3b; I48.91 Unspecified atrial fibrillation; I25.10 Atherosclerotic heart disease of native coronary artery without angina pectoris; E78.00 Pure hypercholesterolemia, unspecified; K21.9 Gastro-esophageal reflux disease without esophagitis; Z86.73 Personal history of transient ischemic attack (TIA), and cerebral infarction without residual deficits; Z88.8 Allergy status to other drugs, medicaments and biological substances; Z79.82 Long term (current) use of aspirin; Z79.02 Long term (current) use of antithrombotics/antiplatelets; Z79.899 Other long term (current) drug therapy
CPT/HCPCS: 36415; 80053; 81001; 83605; 83735; 83880; 85025; 86140; 93005; 93010; 96360; 99284; 99285; C1758; J7030

== ENCOUNTER 2025-02-22 10:40 | Emergency (ER) | payer MEDICARE, OTHER ==
[2025-02-22] MEDS ORDERED: Sodium Chloride 0.9% 10 ML Syringe FLUSH PRN (11:02)
[2025-02-22] MEDS: Iopamidol 755 Mg/ML 100 ML Bottle IVPUSH ONE (11:10)
[2025-02-22 11:12] LABS: BASOPHILS PERCENT AUTO 0.5 % (0.0-1.0); EOSINOPHILS PERCENT AUTO 1.4 % (1.0-3.0); HEMATOCRIT 39.4 % (40.0-54.0); HEMOGLOBIN 13.3 g/dL (14.0-18.0); LYMPHOCYTES PERCENT AUTO 13.4 % (20.5-50.1); MEAN CORPUSCULAR HEMOGLOBIN 30.6 pg (27.0-34.0); MEAN CORPUSCULAR HGB CONC 33.8 g/dL (33.0-35.0); MEAN CORPUSCULAR VOLUME 90.6 fL (80-100); MONOCYTES PERCENT AUTO 8.5 % (2-8); NEUTROPHILS PERCENT AUTO 76.2 % (42.2-75.2); PLATELET COUNT,PLT 203 10^3/uL (150-450); RED BLOOD CELL COUNT 4.35 10^6/uL (4.6-6.2); WHITE BLOOD CELL COUNT,WBC 8.1 10^3/uL (5.0-10.0)
[2025-02-22 11:33] LABS: PROTHROMBIN TIME 10.9 SEC (9.0-12.0); PTT,PARTIAL THROMBOPLSTIN TIME 25.6 SEC (22.0-34.0)
[2025-02-22 11:35] LABS: ALBUMIN 3.3 g/dL (3.4-5.0); ANION GAP 12.3 mEq/L (7-13); BILIRUBIN TOTAL 0.7 mg/dL (0.2-1.0); BUN/CREATININE RATIO 22.3 (No establ ref range); CALCIUM 9.2 mg/dL (8.5-10.1); CREATININE 1.39 mg/dL (0.70-1.30); EST CRCL DRUG DOSING (CG) 40.32 mL/min; POTASSIUM,K 4.3 mmol/L (3.5-5.1); PROTEIN TOTAL,TP 6.6 g/dL (6.4-8.2)
[2025-02-22 11:53] VITALS: BP 191/63; PULSE 54
== END 2025-02-22 12:35 | disposition home or self-care (01) ==
LOC: DL.ED 10:40
DX: R42 Dizziness and giddiness (principal); I10 Essential (primary) hypertension; K21.9 Gastro-esophageal reflux disease without esophagitis; Z88.8 Allergy status to other drugs, medicaments and biological substances; Z79.82 Long term (current) use of aspirin; Z79.899 Other long term (current) drug therapy
CPT/HCPCS: 36415; 70450; 70496; 70498; 80053; 82947; 84484; 85025; 85610; 85730; 93005; 99284; Q9967

== ENCOUNTER 2025-06-19 08:00 | Emergency (ER) | payer MEDICARE, OTHER ==
[2025-06-19 08:21] VITALS: BP 123/61; PULSE 88
== END 2025-06-19 08:20 | disposition left against medical advice (07) ==
LOC: DL.ED 08:00
DX: Z48.01 Encounter for change or removal of surgical wound dressing (principal)
CPT/HCPCS: 99281

== ENCOUNTER 2025-07-04 06:19 | Day surgery (SDC) | payer MEDICARE, OTHER ==
[2025-07-04] MEDS ORDERED: Benzocaine 20% Topical Spray UD MUCMEM ONE (06:20)
[2025-07-04] MEDS ORDERED: Propofol 200 MG/20 ML SDV IV ONE (06:20)
[2025-07-04] MEDS ORDERED: Lactated Ringers 1,000 ML IV ONE (06:20)
[2025-07-04] MEDS: Lactated Ringers 1,000 ML IV SCH (07:00)
[2025-07-04] MEDS ORDERED: Benzocaine 20% Topical Spray UD ONE (07:50)
[2025-07-04] MEDS ORDERED: Propofol 200 MG/20 ML SDV ONE (07:50)
[2025-07-04 09:32] VITALS: BP 178/51; PULSE 52
== END 2025-07-04 09:51 | disposition home or self-care (01) ==
LOC: DL.ENDO 06:19
PROVIDERS: ATTEND Internal Medicine Gastroenterology
DX: K29.50 Unspecified chronic gastritis without bleeding (principal); K31.89 Other diseases of stomach and duodenum; K25.9 Gastric ulcer, unspecified as acute or chronic, without hemorrhage or perforation; I10 Essential (primary) hypertension; E78.5 Hyperlipidemia, unspecified; I25.10 Atherosclerotic heart disease of native coronary artery without angina pectoris; Z87.891 Personal history of nicotine dependence; Z88.8 Allergy status to other drugs, medicaments and biological substances; Z88.5 Allergy status to narcotic agent; Z79.899 Other long term (current) drug therapy
CPT/HCPCS: 43239; 88305; 88342; A9270; J2704; J7120; 00731; 99100